=== PATIENT | female | born 1995 | race African-American/Black ===

== ENCOUNTER 2017-05-17 19:40 | Emergency (ER) | payer BC ==
[~2017-05-17] VITALS: Ht 160 cm; Wt 100.0 kg
[2017-05-17 19:57] VITALS: BP 110/64
== END 2017-05-18 00:47 | disposition left against medical advice (07) ==
LOC: ER 20:34
DX: F41.9 Anxiety disorder, unspecified (principal); Z53.21 Procedure and treatment not carried out due to patient leaving prior to being seen by health care provider

== ENCOUNTER 2021-03-21 22:23 | Emergency (ER) | payer BC ==
[~2021-03-21] VITALS: Ht 167.6 cm; Wt 91.0 kg
[2021-03-21 23:14] LABS: BASOPHILS % 0.7 % (0.0-2.0); EOSINOPHILS % 0.8 % (0.0-5.0); HEMATOCRIT. 42.6 % (36.0-48.0); HEMOGLOBIN. 14.1 g/dL (12.0-16.0); LYMPHOCYTES % 37.8 % (20.0-50.0); MEAN CORPUSCULAR HEMOGLOBIN 28.2 pg (28.0-32.0); MEAN CORPUSCULAR VOLUME 85.4 fL (81.0-99.0); MEAN PLATELET VOLUME 8.3 fl (7.4-10.4); MONOCYTES % 6.9 % (2.0-8.0); NEUTROPHILS % 53.8 % (40.0-76.0); PLATELET 274 x1000/uL (130-400); RED BLOOD CELL COUNT 4.99 mill/uL (4.2-5.4); RED CELL DISTRIBUTION WIDTH 15.2 % (11.6-14.6)
[2021-03-21 23:18] LABS: CHLORIDE 106 mEq/L (98-107)
[2021-03-21 23:22] LABS: ETHANOL BLOOD < 10 mg/dL
[2021-03-21 23:57] LABS: HCG SCREEN NEGATIVE
[2021-03-22 13:30] VITALS: BP 115/72
== END 2021-03-22 13:37 | disposition home or self-care (01) ==
LOC: ER 22:23
DX: F60.3 Borderline personality disorder (principal); F31.9 Bipolar disorder, unspecified; R42 Dizziness and giddiness; T42.6X2A Poisoning by other antiepileptic and sedative-hypnotic drugs, intentional self-harm, initial encounter; T43.592A Poisoning by other antipsychotics and neuroleptics, intentional self-harm, initial encounter; Y92.89 Other specified places as the place of occurrence of the external cause; E11.9 Type 2 diabetes mellitus without complications
CPT/HCPCS: 36415; 80053; 80165; 80307; 80320; 80329; 84703; 85025; 93005; 99285; G0480